=== PATIENT | male | born 1970 | race Caucasian/White ===

== ENCOUNTER 2018-06-07 13:50 | Emergency (ER) | payer OTHER ==
[2018-06-07] MEDS ORDERED: diazePAM 5 MG TABLET PO STA (15:14)
[2018-06-07] MEDS ORDERED: HYDROcod/ACETAM 5/325 MG TABLET PO STA (15:14)
[2018-06-07] MEDS ORDERED: NAPROXEN 250 MG TABLET PO STA (15:14)
--- NOTE | 2018-06-07 15:17 | ED Physician Documentation ---
PD HPI BACK PAIN - Stated complaint Stated Complaint: BACK PX - Chief complaint Chief Complaint: Back Pain - History obtained from History obtained from: Patient - History of Present Illness Timing - onset: Other (Several days ago) Timing - details: Gradual onset Severity Comments: Moderate Location: Lower Quality: Spasm, Sharp, Other (The pain radiates into his left leg) Associated symptoms: No: Fever, Weakness, Numbness, Incontinent of urine, Unable to urinate, Hematuria, Incontinent of stool Improves with: Rest Worsened by: Movement, Twisting Contributing factors: Lifting. No: Trauma, Anticoagulated, Cancer, IVDA, Out of meds Similar symptoms before: Other (The patient had similar episode 15 years ago) Review of Systems Constitutional: denies: Fever, Chills Eyes: denies: Discharge Ears: denies: Ear pain Nose: denies: Congestion Throat: denies: Sore throat Cardiac: denies: Chest pain / pressure Respiratory: denies: Cough GI: denies: Abdominal Pain : denies: Dysuria Skin: denies: Rash Musculoskeletal: reports: Back pain. denies: Neck pain Neurologic: denies: Generalized weakness Immunocompromised: denies: Chemotherapy PD PAST MEDICAL HISTORY - Past Medical History Past Medical History: No - Past Surgical History Past Surgical History: No - Present Medications Home Medications: Ambulatory Orders Medication Instructions Recorded Confirmed Hydrocodone/Acetaminophen [[place] 1 each PO Q6HR PRN #10 tablet 06/07/18 5-325 Tablet] Naproxen 500 mg PO BID PRN #60 tablet 06/07/18 diazePAM [Valium] 5 mg PO TID PRN #10 tablet 06/07/18 - Allergies Allergies/Adverse Reactions: Allergies Allergy/AdvReac Type Severity Reaction Status Date / Time No Known Drug Allergies Allergy Verified 06/07/18 13:59 - Social History Does the pt smoke?: No Smoking Status: Never smoker Does the pt drink ETOH?: Yes Does the pt have substance abuse?: No - Immunizations Immunizations are current?: Yes - POLST Patient has POLST: No PD ED PE NORMAL - General General: Alert and oriented X 3 - HEENT HEENT: Atraumatic, PERRL, EOMI, Ears normal - Cardiac Cardiac: RRR, Strong equal pulses - Respiratory Respiratory: No respiratory distress - Back Back: Other (The patient is tender to palpation in the paraspinal muscles around S1, L5 and L4. The pain is worse on the left paraspinal muscles. There is no skin changes, crepitus or swelling) - Neuro Neuro: Alert and oriented X 3, No motor deficit, No sensory deficit, Other (The patient can ambulate without difficulty) Results - Vitals Vitals: Vital Signs - 24 hr 06/07/18 13:58 Temperature 36.2 C L Heart Rate 77 Respiratory 20 Rate Blood Pressure 138/89 H O2 Saturation 96 Oxygen O2 Source Room air PD MEDICAL DECISION MAKING - ED course ED course: The patient's pain appears to be a musculoskeletal etiology, the patient has no hard evidence to suggest cauda equina or epidural abscess and currently I do not think there is any indication for emergent MRI. The patient appears appropriate for discharge and ongoing outpatient management. I recommended outpatient physical therapy. The patient understands and agrees. I discussed warning signs and recommended returning to the emergency department for any worsening or any concerns Departure - Departure Disposition: 01 Home, Self Care Clinical Impression: Sciatica Qualifiers: Laterality: unspecified laterality Qualified Code(s): M54.30 - Sciatica, unspecified side Instructions: ED Back Care Tips, ED Sprain Strain Lumbar, ED Sciatica Follow-Up: EBONIE KRAFT MD [Primary Care Provider] - Within 1 week (Please ask your primary care to arrange for outpatient physical therapy. If your symptoms are not improving you may require an outpatient MRI) Prescriptions: Hydrocodone/Acetaminophen [[place] 5-325 Tablet] 1 each PO Q6HR PRN #10 tablet PRN Reason: Pain diazePAM [Valium] 5 mg PO TID PRN #10 tablet PRN Reason: Spasms Naproxen 500 mg PO BID PRN #60 tablet PRN Reason: Pain Comments: Please return for worsening symptoms or any concerns
[2018-06-07 15:28] VITALS: BP 135/88
== END 2018-06-07 15:29 | disposition home or self-care (01) ==
LOC: ED 13:50
DX: M54.30 Sciatica, unspecified side (principal)
CPT/HCPCS: 99283; A9270

== ENCOUNTER 2019-05-26 17:06 | Emergency (ER) | payer OTHER ==
[2019-05-26 17:15] VITALS: BP 154/100
--- NOTE | 2019-05-26 17:52 | XRAY Report ---
Reason: Trauma, GLF with limited ROM Procedure Date: 05/26/2019 Accession Number: [id number] / [id number] Procedure: XR - Elbow 3 View LT CPT Code: Final Report FULL RESULT: EXAM: LEFT ELBOW RADIOGRAPHY EXAM DATE: 05/26/2019 05:37 PM. CLINICAL HISTORY: Trauma, GLF with limited ROM. COMPARISON: None. TECHNIQUE: 3 views. FINDINGS: Bones: Normal. No fractures or bone lesions. Joints: Normal. No effusion. No subluxation. Soft Tissues: Normal. No soft tissue swelling. IMPRESSION: No evidence for acute fracture or dislocation of the left elbow. No joint effusion is evident. RADIA
--- NOTE | 2019-05-26 19:15 | ED Physician Documentation ---
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 He has a bruise on the right palm but it is not painful, his left knee is a little painful over the lateral joint line and more painful near the medial epicondyle of the left elbow which radiates up to the shoulder. No limited range of motion. No head or neck injury) Review of Systems Constitutional: reports: Reviewed and negative Throat: reports: Reviewed and negative Cardiac: reports: Reviewed and negative PD PAST MEDICAL HISTORY - Past Surgical History Past Surgical History: No - Present Medications Home Medications: Ambulatory Orders Medication Instructions Recorded Confirmed Hydrocodone/Acetaminophen [[place] 1 each PO Q6HR PRN #10 tablet 06/07/18 5-325 Tablet] Naproxen 500 mg PO BID PRN #60 tablet 06/07/18 diazePAM [Valium] 5 mg PO TID PRN #10 tablet 06/07/18 - Allergies Allergies/Adverse Reactions: Allergies Allergy/AdvReac Type Severity Reaction Status Date / Time No Known Drug Allergies Allergy Verified 06/07/18 13:59 - Social History Does the pt smoke?: No Smoking Status: Never smoker Does the pt drink ETOH?: Yes Does the pt have substance abuse?: No - Immunizations Immunizations are current?: Yes - POLST Patient has POLST: No PD ED PE NORMAL - Vitals Vital signs reviewed: Yes - General General: Alert and oriented X 3, No acute distress - Neck Neck: Supple, no meningeal sign, No bony TTP - Extremities Extremities: Other (Mild tenderness near the medial epicondyle of the left elbow, actually a little bit anterior to that. Almost full range of motion of left elbow but unable to completely straighten straighten it. He is a lot of pain with forced pronation of the left elbow. Flexion is relatively painless. Shoulder itself is nontender with full range of motion on the left. The left knee is nontender with full range of motion, ACL, PCL, LCL, and MCL are all intact, negative grind testing. There is a little bruise near the lunate on the right palm but absolutely no tenderness or limited range of motion any) - Neuro Neuro: Alert and oriented X 3, No motor deficit, No sensory deficit, Normal speech Results - Vitals Vitals: Vital Signs - 24 hr 05/26/19 17:11 Temperature 36.9 C Heart Rate 73 Respiratory 18 Rate Blood Pressure 154/100 H O2 Saturation 98 Oxygen O2 Source Room air - Rads (name of study) 3 views of the left elbow Radiology: EMP read contemporaneously (Normal) Departure - Departure Disposition: Home, Self Care Clinical Impression: Sprain of left elbow Qualifiers: Encounter type: initial encounter Qualified Code(s): S53.402A - Unspecified sprain of left elbow, initial encounter Condition: Good Record reviewed to determine appropriate education?: Yes Instructions: ED Sprain Elbow Comments: You were seen today because you tripped and fell and hurt your left elbow, may be the left shoulder, left knee, right hand. The only tender area is near the medial epicondyle of the left elbow, relevant x-rays are negative. Follow-up with your doctor in 1 week if not completely better. Return for new or worsening symptoms. Ibuprofen as needed for pain. Your blood pressure was elevated today on check into the emergency department. This does not mean that you have hypertension, it is a common phenomenon to come to the emergency department and have elevated blood pressure. I recommend that you see your primary care physician within the week to have it rechecked when you are feeling better.
== END 2019-05-26 19:19 | disposition home or self-care (01) ==
LOC: ED 17:06
DX: S53.402A Unspecified sprain of left elbow, initial encounter (principal); S60.221A Contusion of right hand, initial encounter; W01.0XXA Fall on same level from slipping, tripping and stumbling without subsequent striking against object, initial encounter; Y99.1 Military activity; R03.0 Elevated blood-pressure reading, without diagnosis of hypertension
CPT/HCPCS: 99283

== ENCOUNTER 2021-11-30 16:12 | Outpatient (CLI) | payer OTHER ==
--- NOTE | 2021-11-30 16:49 | SLEEP CARE CONSULTATION ---
Information from patient questionnaire entered by Susan Davis MA. I have reviewed and concur with the information entered by Ssuan Davis MA. This document represents the service I personally performed and the decisions made by , Gloira Alexandra ARNP. History of Present Illness Service Date and Time: 11/30/2021 1612 Reason for Visit: New patient (ONSET 05/06/2019, NO PRIORS,) Chief Complaint: reports: Unrefreshed sleep, Snoring, Excessive daytime sleepi ness, Fatigue, Frequent awakenings at night Date of Onset: FEW YEARS Usual bedtime: 1000 PM Time it takes to fall asleep: NOT LONG Snores at night: Yes Observed to quit breathing while asleep: No Sleeps alone due to snoring: No Number of times waking at night: 2-3 Reasons for waking at night: reports: Other (noise, unknown reason, poking him). denies: Choking, Snoring, Gasping for air Toss, Turn, or Twitch while sleeping: Yes Recalls having dreams: Yes Usually gets out of bed at: 0600; weekends 0700 Feels refreshed in the morning: No Morning headache: No Sleepy or fatigued during the day: Yes Ever fallen asleep while driving: No Takes day naps: No Dreams during day naps: No Prior sleep studies: No Additional HPI information: I had the pleasure of seeing ERWIN DONOVAN today regarding the possibility of him having a sleep disorder. His current complaints are Unrefreshed sleep, Snoring, Excessive daytime sleepiness, Fatigue and Frequent awakenings at night. He states he is snoring frequently and loudly. His has hit him at night because of his snoring. He states he doesn't get good sleep. He does not wake up feeling rested. He will lay down and fall asleep quickly but then he can wake up frequently through the night. He denies ever being woken up from snoring, choking or gasping for air. He has a history of hypertension, gastric reflux and migraines. He has a brother who does have sleep apnea and uses a CPAP. - Parasomnia Symptoms Ever been unable to move upon waking from sleep: No Walks in sleep: No Talks in sleep: No Ever acted out dreams in sleep: No Ever felt weak in the knees when startled or emotional: No Bothered by creepy, crawly, restless sensations in legs: No Problems with memory or concentration: Yes (memory mostly, can get sidetracked sometimes) Subjective Initial [place] Sleepiness Scale score: 9 (11/29/21) Past Medical History Past Medical History: reports: Hypertension, GERD, Other (Migraines; ) Social History The patient's occupation is a AM. Patient is and lives in [place]. Have you smoked in the past 12 months: No Cigarettes per day (20/pack): 5 Years of smokin Quit date: 1999 Smoking Pack Years: 0.8 Alcohol use: Yes Alcohol amount and frequency: 1-2 X WEEKLY Caffeine use: Yes Caffeine amount and frequency: 2 X MONTHLY Family History Family history of sleep disordered breathing: Yes Family Hx Sleep Apnea: Sibling: Snoring, Sleep apnea - Treated Allergies and Home Medications Known drug allergies: No Home medication list reviewed: Yes Allergy and home medication list: Allergies No Known Drug Allergies Allergy (Verified 06/07/18 13:59) Medications: Lisinopril Claritin Maxalt, prn Ibuprofen, prn Tylenol, prn Review of Systems Weight gain over past 5 years: 10 Cardiovascular: reports: high blood pressure Gastrointestinal: reports: heartburn Neurological: reports: headaches. denies: head trauma Psychiatric: denies: anxiety, depression Ear/Nose/Throat: reports: nasal congestion, sinus problems, dry mouth/throat (occasional), wisdom teeth removed. denies: injury to nose, tonsillectomy Endocrine: denies: thyroid disease Immunologic: reports: sneezing, allergies to food or environment Physical Exam Vital signs obtained and entered by: Santiago DAVIS CMA [facility] Blood Pressure: 113/72 (RESP 18, PULSE 61, LEFT) Cuff size: wrist Heart Rate: 62 O2 Saturation: 98 (PAPER MASK) Height: 5 ft 11 in Weight: 194 lb (CLOTHES) Weight change since last visit: TRYIN LOSING WEIGHT Body Mass Index: 27.0 BMI Classification: Overweight Neck circumference: 16 (INCHES) Mouth and throat: narrow oropharynx Soft palate: normal Hard palate: normal Uvula: normal Uvula visualization: 25% Mallampati Class III Tongue: normal in size Tonsils: 1+ Chin and jaw: normal size and position Neck: normal w/o lymphadenopathy or thyromegaly Heart: regular rate and rhythm Lungs: clear bilaterally Impression and Plan 1. Suspected Obstructive Sleep Apnea-Hypopnea Syndrome, as suggested by a history of loud and irregular snoring, frequent awakening during the night, unrefreshed sleep, cognitive impairment, and excessive daytime sleepiness. Narrow oropharynx and obesity are common predisposing factors for obstructive sleep apnea-hypopnea syndrome. I recommend proceeding to polysomnography to confirm the diagnosis and to assess severity. If the patient has significant sleep disordered breathing, a manual CPAP titration study will also be performed to find the optimal treatment pressure. I informed the patient of what the sleep studies involve and after some discussion, obtained agreement to proceed. The pathophysiology of obstructive sleep apnea-hypopnea syndrome was discussed with the patient and health risks of cardiovascular and cerebrovascular disease if not treated. Risks of drowsy driving discussed in detail and patient advised to avoid long distance driving and to warehouse order puller at the first sign of drowsiness. Patient agreed to plan. * Schedule polysomnography * Avoid long distance driving or driving when feeling sleepy. * Avoid alcohol, sedative and muscle relaxant around bedtime. * Attempt to lose weight. * Review instructions provided by trained office staff on how to prepare for the sleep study. * Return for follow-up after sleep study completed. Counseling Topics: Weight loss health impact Visit Type: In Office Time Spent with Patient (minutes): 30 Provider Statement: I spent 100% of the Face to Face Visit with the patient with greater than 50% spent counseling the patient and coordination of care.
[2021-11-30 16:56] VITALS: BP 113/72
== END 2021-11-30 16:13 | disposition home or self-care (01) ==
LOC: SC 16:12
PROVIDERS: ATTEND Nurse Practitioner Family
DX: R06.83 Snoring (principal); G47.8 Other sleep disorders; G47.10 Hypersomnia, unspecified; R53.83 Other fatigue; I10 Essential (primary) hypertension; E66.3 Overweight; Z68.27 Body mass index [BMI] 27.0-27.9, adult; Z87.891 Personal history of nicotine dependence
CPT/HCPCS: 99203; 99212

== ENCOUNTER 2023-03-27 15:14 | Outpatient (CLI) | payer OTHER ==
--- NOTE | 2023-03-27 15:39 | Sleep Patient Instructions ---
Sleep Center Visit Summary - Patient Visit Information Reason for Visit: Annual Visit - Patient Instructions Additional Instructions: You will be completing a sleep study, either an in-lab polysomnography (PSG) or home sleep study (HST). You will follow-up in the sleep care office after the sleep study is completed to hear the results and talk about therapy, if needed. You will be called by our office staff to schedule this appointment, but you may contact us with any questions. - Clinic Information Contact: [facility] [address] [place] [address] [email or web address] T: [phone]
--- NOTE | 2023-03-27 15:40 | SLEEP CARE CONSULTATION ---
Information from patient questionnaire entered by Natalie Perez. I have reviewed and concur with the information entered by Natalie Perez. This document represents the service I personally performed and the decisions made by me, Gloria Alexandra ARNP. History of Present Illness Service Date and Time: 03/27/2023 1514 Reason for follow up: annual (LAST SEEN 12/2021 NO CPAP) Prior sleep studies: No Type of Sleep Study: Polysomnography (f/u poly, 12/10/2021 [facility], neg,) HPI additional information: ERWIN DONOVAN was last seen in 12/2021 and had negative sleep study with elevated supine AHI and returned today for follow-up. His current complaints are unrefreshed sleep, snoring, fatigue and excessive daytime sleepiness. His has hypertension and says he has had a ECG that may have shown a heart attack. He is scheduled to see a crocheter hand at end of April 2023. The patient tells me that he normally goes to bed around 8:30-9:30 pm, and it takes him approximately 5-10 minutes to fall asleep. He has been told that he snores loudly and irregularly at night. He has not been observed to stop breathing in his sleep. His bed partner will occasionally sleep in another room due to the loudness of his snoring. He can recall waking up on the average of 4-5 times during the night. Most of the time he wakes up because of unknown or cat. He has occasionally awakened for his own snoring. There is a lot of tossing and turning in his sleep. Generally he can recall having dreams. He usually wakes up at 0530 and does not feel refreshed. He usually does have a morning headache and has history of migraines. The migraines come in cycles for a month at a time. During the day he complains of feeling sleepy and fatigued. He has never fallen asleep while driving nor has any accident due to sleepiness. He usually does not take naps during the day. If he naps, upon falling asleep during the day he denies having vivid dreams. There is no somniloquy (sleep talking) or somnambulism (sleep walking). He has never e xperienced sleep paralysis, cataplexy, or symptoms of restless leg syndrome. He reports having impaired concentration sometimes during the day. Sleep Study - Results Type of Sleep Study: Polysomnography (f/u poly, 12/10/2021 [facility], neg,) Prior sleep studies: No Subjective Initial [place] Sleepiness Scale score: 9 (11/29/21) Current [place] Sleepiness Scale score: 7 Allergies and Home Medications Known drug allergies: No Drug allergies reviewed: Yes Home medication list reviewed: Yes (aspirin, lisinopril) Allergy and home medication list: Allergies No Known Drug Allergies Allergy (Verified 03/26/23 15:49) Home Medications Medication Instructions Recorded Confirmed Last Taken Type Hydrocodone/Acetaminophen [[place] 1 each PO Q6HR PRN #10 tablet 06/07/18 03/27/23 Unknown Rx 5-325 Tablet] Naproxen 500 mg PO BID PRN #60 tablet 06/07/18 03/27/23 Unknown Rx diazePAM [Valium] 5 mg PO TID PRN #10 tablet 06/07/18 03/27/23 Unknown Rx Aspirin [Amanda] See Rx Instructions .ROUTE .COMPLEX 03/27/23 03/27/23 Unknown History Lisinopril [Zestril] See Rx Instructions .ROUTE .COMPLEX 03/27/23 03/27/23 Unknown History Review of Systems Review of systems same as previous: Yes (high blood pressure) Physical Exam Vital signs obtained and entered by: NATALIE Francois MA Blood Pressure: 120/70 (LEFT ARM) Cuff size: regular Heart Rate: 59 O2 Saturation: 98 Height: 5 ft 11 in (N95) Weight: 207 lb Body Mass Index: 28.8 BMI Classification: Overweight Neck circumference: 16 Impression and Plan 1. Suspected Obstructive Sleep Apnea-Hypopnea Syndrome, as suggested by a history of loud and irregular snoring, morning headache, frequent night awakenings, unrefreshed sleep, and excessive daytime sleepiness. I recommend proceeding to polysomnography to confirm the diagnosis and to assess severity. If the patient has significant sleep disordered breathing, a manual CPAP titration study will also be performed to find the optimal treatment pressure. I informed the patient of what the sleep studies involve and after some discussion, obtained agreement to proceed. The pathophysiology of obstructive sleep apnea-hypopnea syndrome was discussed with the patient and health risks of cardiovascular and cerebrovascular disease if not treated. Risks of drowsy driving discussed in detail and patient advised to avoid long distance driving and to socket puller at the first sign of drowsiness. Patient agreed to plan. * Schedule polysomnography. * Avoid long distance driving or driving when feeling sleepy. * Avoid alcohol, sedative and muscle relaxant around bedtime. * Attempt to lose weight. * Review instructions provided by trained office staff on how to prepare for the sleep study. * Return for follow-up after sleep study completed. Counseling Topics: Weight loss health impact Plan: PSG Visit Type: In Office Time Spent with Patient (minutes): 21 Provider Statement: I spent 100% of the Face to Face Visit with the patient with greater than 50% spent counseling the patient and coordination of care.
[2023-03-27 15:45] VITALS: BP 120/70; O2SAT 98
== END 2023-03-27 15:15 | disposition home or self-care (01) ==
LOC: SC 15:14
PROVIDERS: ATTEND Nurse Practitioner Family
DX: R06.83 Snoring (principal); R51.9 Headache, unspecified; G47.8 Other sleep disorders; G47.10 Hypersomnia, unspecified; E66.3 Overweight; Z68.28 Body mass index [BMI] 28.0-28.9, adult; R53.83 Other fatigue; I10 Essential (primary) hypertension
CPT/HCPCS: 99212; 99213

== ENCOUNTER 2023-04-03 20:33 | Outpatient (CLI) | payer OTHER | END 2023-04-03 20:34 | disposition home or self-care (01) | LOC: SC 20:33 | PROVIDERS: ATTEND Nurse Practitioner Family | DX: G47.33 Obstructive sleep apnea (adult) (pediatric) (principal); G47.61 Periodic limb movement disorder; I10 Essential (primary) hypertension | CPT/HCPCS: 95810 ==

== ENCOUNTER 2023-04-18 15:13 | Outpatient (CLI) | payer OTHER ==
--- NOTE | 2023-04-18 15:44 | Sleep Patient Instructions ---
Sleep Center Visit Summary - Patient Visit Information Reason for Visit: Sleep study followup - Patient Instructions Instructions Attached: CPAP Additional Instructions: You are being started on CPAP therapy with pressure setting at 4-15 cmH2O. You will need to call the sleep care office to set up your follow up once you have your APAP machine and we will schedule a visit to check compliance and response to therapy at that time. You may call the office with any concerns about pressure feeling too low or too much for adjustment, if needed. You should contact DME supplier for any questions or concerns about mask or equipment. Please call office to schedule a follow up appointment in the sleep care office one month after obtaining new device. - Clinic Information Contact: [facility] [address] [place] [address] [email or web address] T: [phone]
--- NOTE | 2023-04-18 15:47 | SLEEP CARE CONSULTATION ---
Information from patient questionnaire entered by Natalie Perez. I have reviewed and concur with the information entered by Natalie Perez. This document represents the service I personally performed and the decisions made by me, Gloria Alexandra ARNP. History of Present Illness Service Date and Time: 04/18/2023 151 Initial [place] Sleepiness Scale score: 9 (11/29/21) Current [place] Sleepiness Scale score: 7 (04/18/23) Additional HPI information: ERWIN DONOVAN returns for follow up and results of the recently performed polysomnography. The sleep study showed mild obstructive sleep apnea with an average AHI of 5.8 and iron oxygen saturation of 89%. He also had mild PLMs that did not contribute to sleep fragmentation. I explained the pathophysiology behind obstructive sleep apnea. We then spent quite a bit of time discussing different treatment options. For mild obstructive sleep apnea, surgery and oral appliance are alternatives to nasal CPAP therapy but in moderate or severe cases, nasal CPAP is the most effective and reliable treatment. Because apnea is primarily in supine position, then positional management therapy could be effective. Methods discussed such as positioning with pillows, using a T-shirt with tennis balls in the back or commercial products that have a pillow format on back to prevent supine sleep. I reviewed the impact of weight changes on sleep apnea and strongly recommended losing weight. After some discussion, the patient opted to go with the nasal CPAP therapy. Nasal autoCPAP set at 4-15 cmH20 will be ordered with rationale explained. A manual titration study will be ordered if unable to find optimal pressure with office adjustments. I explained how CPAP machine works and what to expect when using the machine. Using CPAP every night in order to get used to it was emphasized. Patient advised to put CPAP mask on before getting into bed so as not to fall asleep without CPAP. To assist acclimation to CPAP use, it could also be used for a short time during day while reading or watching TV. The patient was instructed to call the CPAP supplier to discuss any mechanical problem that may occur. If the mask given is uncomfortable or is difficult to keep on through the night even with adjustment, contact the CPAP supplier as many will replace with another mask style if notified before 30 days. If snoring or perceives is not getting enough air or too much air from the machine, notify this office. Patient was cautioned about risks of drowsy driving until sleepiness symptoms resolve. Sleep Study - Results Type of Sleep Study: Polysomnography (f/u poly, 12/10/2021 [facility], neg, POLY COMPLETED 04/03/23) Prior sleep studies: No Polysomnography/Home Sleep Study results: IMPRESSION: The quality of the study is good. The patient had normal sleep efficiency. The sleep architecture was also normal. Respiratory monitoring showed mild obstructive sleep apnea- hypopnea (AHI = 5.8) associated with oxyhemoglobin desaturation and minimal hypoxia (iron oxygen saturation of 89%). The respiratory events occurred mainly during supine REM sleep (supine AHI = 12.3; non-supine = 0.57). Snore was light to loud in intensity. There was mild periodic leg movement of sleep not associated with sleep fragmentation. Cardiac rhythm was normal sinus rhythm without significant arrhythmia. No abnormal behavior (parasomnia) observed during the night. Allergies and Home Medications Known drug allergies: No Drug allergies reviewed: Yes Home medication list reviewed: Yes (no changes) Allergy and home medication list: Allergies No Known Drug Allergies Allergy (Verified 04/17/23 11:33) Review of Systems Review of systems same as previous: Yes (NO CHANGE) Physical Exam Vital signs obtained and entered by: NATALIE Francois MA Blood Pressure: 154/94 (LEFT ARM) Cuff size: regular Heart Rate: 57 O2 Saturation: 97 Height: 5 ft 11 in (N95) Weight: 211 lb Body Mass Index: 29.4 BMI Classification: Overweight Impression and Plan 1. Obstructive Sleep Apnea-Hypopnea Syndrome, mild, with lowest oxygen saturation of 89%. Obviously this is the cause of the patients symptoms of unrefreshed sleep, and excessive daytime sleepiness. Positive pressure therapy could benefit hypertension. As mentioned above, the patient will be started on nasal autoCPAP therapy with pressure set at 4-15 cmH2O. Compliance guidelines also reviewed. A copy of compliance guidelines will be given for reference at check out. Because the apnea is more severe supine, I instructed to avoid sleeping supine using pillow positioning until able to start CPAP use. 2. Periodic limb movement, mild, that did not fragment patients sleep. Periodic limb movement of sleep (PLMS) is characterized by episodes of repetitive limb movements that occur during sleep and usually involve the lower limbs. The etiology is unknown. Sleep hygiene methods can also improve sleep as well as lifestyle changes such as regular exercise. Patient was advised that no treatment is needed at this time. If symptoms increase, then further evaluation is indicated. 3. Overweight, unspecified. Currently patients BMI is 29.4. Obesity increases the risk of apnea, CPAP pressure requirements and overall health risks especially cardiovascular and diabetes. Thus patient is advised to lose weight. * Nasal auto CPAP therapy, pressure at 4-15 cm H2O. * Attempt to lose weight. * Avoid alcohol consumption near bedtime. * Avoid supine sleep until using CPAP. * The patient is again cautioned about driving until sleepiness completely resolves. * Return one month after CPAP obtained. I will assess response to therapy and compliance at that time. Counseling Topics: Weight loss health impact Prescriptions: Auto CPAP Plan: compliance visit Visit Type: In Office Time Spent with Patient (minutes): 21 Provider Statement: I spent 100% of the Face to Face Visit with the patient with greater than 50% spent counseling the patient and coordination of care.
[2023-04-18 15:55] VITALS: BP 154/94; O2SAT 97
== END 2023-04-18 15:14 | disposition home or self-care (01) ==
LOC: SC 15:13
PROVIDERS: ATTEND Nurse Practitioner Family
DX: G47.33 Obstructive sleep apnea (adult) (pediatric) (principal); G47.61 Periodic limb movement disorder; E66.3 Overweight; Z68.29 Body mass index [BMI] 29.0-29.9, adult
CPT/HCPCS: 99212; 99213

== ENCOUNTER 2023-07-01 08:15 | Outpatient (CLI) | payer OTHER ==
--- NOTE | 2023-07-01 20:49 | XRAY Report ---
PROCEDURE: Chest 2V INDICATIONS: ACUTE COUGH TECHNIQUE: 2 views of the chest were acquired. COMPARISON: None. FINDINGS: Surgical changes and devices: None. Lungs and pleura: No pleural effusions or pneumothorax. Left lower lobe patchy consolidation, best s een on lateral view. Mediastinum: Mediastinal contours appear normal. Heart size is normal. Bones and chest wall: No suspicious bony lesions. Overlying soft tissues appear unremarkable. IMPRESSION: Left lower lobe patchy consolidation suggestive of atelectasis, aspiration and/or pneumonia. Consider radiographic follow-up to document improvement. Reviewed by: Idania Larson MD on 07/01/2023 8:48 PM PST Approved by: Idania Larson MD on 07/01/2023 8:48 PM PST Station ID: [id number]
== END 2023-07-01 08:30 | disposition home or self-care (01) ==
LOC: DI.N 08:15
PROVIDERS: ATTEND Physician Assistant Medical
DX: R91.8 Other nonspecific abnormal finding of lung field (principal)

== ENCOUNTER 2023-11-21 11:07 | Outpatient (CLI) | payer OTHER ==
--- NOTE | 2023-11-21 11:54 | Sleep Patient Instructions ---
Sleep Center Visit Summary - Patient Visit Information Reason for Visit: 1st compliance followup for CPAP therapy - Patient Instructions Additional Instructions: You were here for follow up of CPAP therapy. You will be continued on CPAP therapy with pressure at 7-9 cmH2O. Please let us know if the pressure change is uncomfortable and we can make further adjustments of the pressure. You should follow up with sleep care in 1-2 months. You may contact us sooner for any questions or concerns. - Clinic Information Contact: [facility] [address] [place] [address] [email or web address] T: [phone]
--- NOTE | 2023-11-21 12:01 | SLEEP CARE CONSULTATION ---
Information from patient questionnaire entered by Natalie Perez. I have reviewed and concur with the information entered by Natalie Perez. This document represents the service I personally performed and the decisions made by me, Gloria Alexandra ARNP. History of Present Illness Service Date and Time: 11/21/2023 1107 Previous diagnosis: Mild, Obstructive Sleep Apnea-Hypopnea Syndrome AHI: 5.8 (04/03/23) Reason for follow up: first compliance Equipment type: CPAP (RESMED AIRSENSE 11 S/U 05/15/23) Equipment obtained from: Other ([facility]; getting supplies) Mask style: Full face Mask brand: Myoonet (Anahi Full) Backup mask available: No Last cushion change: 2 weeks Prior sleep studies: No Type of Sleep Study: Polysomnography (f/u poly, 12/10/2021 [facility], neg, POLY COMPLETED 04/03/23) HPI additional information: ERWIN DONOVAN was diagnosed to have mild, AHI 5.8, obstructive sleep apnea- hypopnea syndrome and returned today for CPAP therapy first compliance follow- up. Sleep Study - Results Type of Sleep Study: Polysomnography (f/u poly, 12/10/2021 [facility], neg, POLY COMPLETED 04/03/23) Prior sleep studies: No CPAP Compliance Data - Data Reviewed with Patient Average duration of nightly device use: 6 HRS 58 MINS Compliance rate %: 67 (10/20/23-11/18/23; /30 days used) Current pressure setting (cmH2O): 4-15 (median 5.1, avg 7.6, max 9) Average residual AHI: 1.3 Central apnea: 0.5 Obstructive apnea: 0.2 Hypopnea: 0.5 Average large leak: 2.5 L/min Subjective Missed days of use due to: reports: travel (camping, no electricity) Patient concerns: reports: air blowing in eyes (occasional, just needs adjustment), mask leak noise, condensation in mask/hose (occasional), nasal congestion, other (hair being affected by strapping). denies: aerophagia, mask discomfort, dry mouth, nose, throat, epistaxis Observed to snore while using device: Yes (once) Current pressure setting perceived as: too low On therapy, patient: reports: sleeping better, other (not feeling overly rested in the mornings or have more energy during the day). denies: drowsiness while driving (only on long trips) Initial [place] Sleepiness Scale score: 9 (11/29/21) Current [place] Sleepiness Scale score: 5 (11/21/23) Allergies and Home Medications Known drug allergies: No Drug allergies reviewed: Yes Home medication list reviewed: Yes (see updated list in EMR) Allergy and home medication list: Allergies No Known Drug Allergies Allergy (Verified 11/19/23 10:44) Review of Systems Review of systems same as previous: Yes (NO CHANGE) Physical Exam Vital signs obtained and entered by: NATALIE Francois MA Blood Pressure: 156/92 (LEFT ARM) Cuff size: regular Heart Rate: 54 O2 Saturation: 97 Height: 5 ft 11 in (N95) Weight: 205 lb Body Mass Index: 28.5 BMI Classification: Overweight Impression and Plan 1. Obstructive Sleep Apnea-Hypopnea Syndrome, mild, with fair treatment compliance and good apnea control. On CPAP therapy, the patient has better sleep quality. He has significant improvement of his sleep apnea. He says he does not wake up feeling rested in the mornings or that he has more energy through the day. He does wear his mask nightly except for the nights he was camping. His did not notice a lot of snoring when he was sleeping without his mask on. The patients pressure will be changed to autoCPAP 7-9 cmH20 to reflect pressure being used. Patient advised to contact me if pressure change is uncomfortable so that it can be adjusted. Goals for apnea control discussed. He has been having difficulty with the strapping on the headgear causing pressure walters on his hair. I encouraged him to try barriers on the strapping to see if this will help reduce pressure from the straps. He voiced understanding. Patient's apnea severity and rationale for treatment to reduce apnea, improve sleep quality and reduce cardiovascular and cerebrovascular events was reviewed. I also reviewed the benefit of consistent device use of CPAP for hypertension. 2. Overweight, unspecified. Currently patients BMI is 28.5. He is trying to lose weight. Obesity increases the risk of apnea, CPAP pressure requirements and overall health risks especially cardiovascular and diabetes. Thus patient is advised to lose weight. * Change auto CPAP pressure to 7-9 cmH2O * Notify me if snoring with mask or feeling that the pressure is too much or too little * Attempt to lose weight * Call this office if any problems using CPAP * Return for follow up in 1-2 months, or sooner if concerns arise Adjust device pressure to (cmH2O): 7-9 Counseling Topics: Spare mask, Weight loss health impact Follow up with Sleep Care in: 1-2 months Visit Type: In Office Time Spent with Patient (minutes): 27 Provider Statement: I spent 100% of the Face to Face Visit with the patient with greater than 50% spent counseling the patient and coordination of care.
[2023-11-21 12:11] VITALS: BP 156/92; O2SAT 97
== END 2023-11-21 11:08 | disposition home or self-care (01) ==
LOC: SC 11:07
PROVIDERS: ATTEND Nurse Practitioner Family
DX: G47.33 Obstructive sleep apnea (adult) (pediatric) (principal); E66.3 Overweight; Z68.28 Body mass index [BMI] 28.0-28.9, adult
CPT/HCPCS: 99212; 99213